=== PATIENT | female | born 1985 | race Hispanic/Latino ===

== ENCOUNTER 2021-06-25 17:04 | Emergency (ER) | payer OTHER ==
--- OUTSIDE RECORDS SUMMARY | 2021-06-25 17:07 | XMS REPORT | Continuity of Care Document ---
:1985 Author Organization [facility] t Address [address] [place] [address] Care Team Providers Name Role Phone Unavailable Unavailable Unavailable Problems This patient has no known problems. Allergies, Adverse Reactions, Alerts This patient has no known allergies or adverse reactions. Medications Ordered Filled Start Stop Current Ordering Indication Dosage Frequency Signature Comments Components Source Medication Medication Date Date Medication? Clinician (SIG) Name Name Augmentin Augmentin Jacqueline [address] [facility]05[facility]11 [facility] Procedures This patient has no known procedures. Encounters Start End Encounter Admission Attending Care Care Encounter Source Date/Time Date/Time Type Type Clinicians Facility Department ID 2020-08-28 2020-08-[address] [id number] 2020-04-30 2020-04-30 [facility] [id number] [facility] 15:09:00 15:09:00 [facility] l Medicine Outpati ent Clinics 2020-04-30 2020-04-30 [facility] [id number] [facility] 15:09:00 15:09:00 [facility] l Medicine Outpati ent Clinics 2020-04-22 2020-04-22 [facility] [id number] [facility] 11:37:00 11:37:00 t [facility] Medicine Outpati ent Clinics 2020-04-21 2020-04-21 [facility] [id number] [facility] 14:20:00 14:20:00 t [facility] Medicine Outpati ent Clinics 2019-11-28 2019-11-28 [facility] [id number] [facility] 15:45:00 15:45:00 t [facility] Medicine Outpati ent Clinics 2019-11-09 2019-11-09 [facility] [id number] [facility] 10:29:00 10:29:00 t [facility] Medicine Outpati ent Clinics 2019-11-07 2019-11-07 [facility] [id number] [facility] 15:45:00 15:45:00 t [facility] Medicine Outpati ent Clinics 2019-10-03 2019-10-03 [facility] [id number] [facility] 11:55:00 11:55:00 t [facility] Medicine Outpati ent Clinics 2019-09-19 2019-09-19 [facility] [id number] [facility] 01:10:00 01:10:00 [facility] Medicine Outpati ent Clinics 2019-09-17 2019-09-17 [facility] [id number] 16:30:00 16:30:00 [facility] Medicine Outpati ent Clinics 2019-09-17 2019-09-17 [facility] [id number] 14:20:00 14:20:00 [facility] Medicine Outpati ent Clinics Results This patient has no known results.
--- NOTE | 2021-06-25 18:06 | EDPHYS ---
Physician Documentation [facility] Name: Olamide Duarte Age: 36 yrs Sex: Female : 1985 Arrival Date: 06/25/2021 Time: 17:06 Bed DIS3 Private MD: ED Physician Kingston Moreno HPI: 06/25 17:31 This 36 yrs old Female presents to ER via Ambulatory with complaints of Back savannah Injury. 17:31 The patient presents with pain that is acute, and decreased range of motion, and an savannah injury. The symptoms are located in the lumbar area. Onset: The symptoms/episode began/occurred just prior to arrival, today. The pain does not radiate. Associated signs and symptoms: The patient has no apparent associated signs or symptoms. The problem was sustained when bending over. Modifying factors: The patient symptoms are alleviated by remaining still, the patient symptoms are aggravated by movement. Severity of symptoms: At their worst the symptoms were moderate, in the emergency department the symptoms are unchanged. The patient has not experienced similar symptoms in the past. 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 - Social history:: Smoking status: Patient denies any tobacco usage or history of. - Family history:: not pertinent. ROS: 17:31 Constitutional: Negative for fever, chills, and weight loss, Eyes: Negative for injury, savannah pain, redness, and discharge, ENT: Negative for injury, pain, and discharge, Neck: Negative for injury, pain, and swelling, Cardiovascular: Negative for chest pain, palpitations, and edema, Respiratory: Negative for shortness of breath, cough, wheezing, and pleuritic chest pain, Abdomen/GI: Negative for abdominal pain, nausea, vomiting, diarrhea, and constipation, : Negative for injury, bleeding, discharge, and swelling, MS/Extremity: Negative for injury and deformity, Skin: Negative for injury, rash, and discoloration, Neuro: Negative for headache, weakness, numbness, tingling, and seizure, Psych: Negative for depression, anxiety, suicide ideation, homicidal ideation, and hallucinations, Allergy/Immunology: Negative for hives, rash, and allergies, Endocrine: Negative for neck swelling, polydipsia, polyuria, polyphagia, and marked weight changes, Hematologic/Lymphatic: Negative for swollen nodes, abnormal bleeding, and unusual bruising. 17:31 Back: Positive for pain with movement, of the lumbar area. Exam: 17:31 Constitutional: This is a well developed, well nourished patient who is awake, alert, savannah and in no acute distress. Head/Face: Normocephalic, atraumatic. Eyes: Pupils equal round and reactive to light, extra-ocular motions intact. Lids and lashes normal. Conjunctiva and sclera are non-icteric and not injected. Cornea within normal limits. Periorbital areas with no swelling, redness, or edema. ENT: Nares patent. No nasal discharge, no septal abnormalities noted. Tympanic membranes are normal and external auditory canals are clear. Oropharynx with no redness, swelling, or masses, exudates, or evidence of obstruction, uvula midline. Mucous membranes moist. Neck: Trachea midline, no thyromegaly or masses palpated, and no cervical lymphadenopathy. Supple, full range of motion without nuchal rigidity, or vertebral point tenderness. No Meningismus. Chest/axilla: Normal chest wall appearance and motion. Nontender with no deformity. No lesions are appreciated. Cardiovascular: Regular rate and rhythm with a normal S1 and S2. No gallops, murmurs, or rubs. Normal PMI, no JVD. No pulse deficits. Respiratory: Lungs have equal breath sounds bilaterally, clear to auscultation and percussion. No rales, rhonchi or wheezes noted. No increased work of breathing, no retractions or nasal flaring. Abdomen/GI: Soft, non-tender, with normal bowel sounds. No distension or tympany. No guarding or rebound. No evidence of tenderness throughout. Skin: Warm, dry with normal turgor. Normal color with no rashes, no lesions, and no evidence of cellulitis. MS/ Extremity: Pulses equal, no cyanosis. Neurovascular intact. Full, normal range of motion. Neuro: Awake and alert, GCS 15, oriented to person, place, time, and situation. Cranial nerves II-XII grossly intact. Motor strength 5/5 in all extremities. Sensory grossly intact. Cerebellar exam normal. Normal gait. Psych: Awake, alert, with orientation to person, place and time. Behavior, mood, and affect are within normal limits. 17:31 Back: pain, that is mild, ROM is painful, with flexion, with extension, normal spinal alignment noted, CVA tenderness, is absent, muscle spasm, is not present. Vital Signs: 17:18 BP 126 / 76; Pulse 76; Resp 18; Temp 98.7(O); Pulse Ox 100% on R/A; Weight 65.77 kg; ld1 Height 5 ft. 3 in. (160.02 cm); Pain 0/10; 17:18 Body Mass Index 25.69 (65.77 kg, 160.02 cm) ld1 MDM: 17:12 Patient medically screened. savannah 17:33 Differential diagnosis: Osteoarthritis Osteoporosis ruptured disc, vertebral fracture. savannah Data reviewed: vital signs, nurses notes, radiologic studies, plain films. Data interpreted: line service person: rate is 76 beats/min, rhythm is regular, Pulse oximetry: on room air is 100 %. Test interpretation: by ED physician or midlevel provider: plain radiologic studies. Counseling: I had a detailed discussion with the patient and/or guardian regarding: the historical points, exam findings, and any diagnostic results supporting the discharge/admit diagnosis, lab results. 06/25 17:31 Order name: XRAY Thoracic Spine (Ap/lat) savannah 06/25 17:31 Order name: Lumbar Spine (3 Views) XRAY savannah Administered Medications: No medications were administered Disposition Summary: 06/25/21 18:05 Discharge Ordered Location: Home savannah Problem: new savannah Symptoms: have improved savannah Condition: Stable savannah Diagnosis - Low back pain savannah - Strain of muscle and tendon of back wall of thorax savannah Followup: savannah - With: Private Physician - When: 2 - 3 days - Reason: Recheck today's complaints, Continuance of care, Re-evaluation by your physician Discharge Instructions: - Discharge Summary Sheet savannah - Musculoskeletal Pain savannah - Thoracic Strain savannah - Thoracic Strain, Cygu-lo-Noyy savannah - Lumbar Sprain savannah - Lumbar Strain savannah Forms: - Medication Reconciliation Form savannah - Thank You Letter savannah - Antibiotic Education savannah - Prescription Opioid Use savannah Prescriptions: - Ibuprofen 600 mg Oral Tablet - take 1 tablet by ORAL route every 6 hours As needed take with food; 21 tablet; savannah Refills: 0, Product Selection Permitted - Cyclobenzaprine 5 mg Oral Tablet - take 1 tablet by ORAL route 3 times per day As needed; 15 tablet; Refills: 0, savannah Product Selection Permitted Signatures: Dispatcher [employer] Kingston Jerry MD MD cha Dibbern, Lauren RN RN ld1
--- NOTE | 2021-06-25 18:06 | ER ---
Nurse's Notes [facility] Name: Olamide Duarte Age: 36 yrs Sex: Female : 1985 Arrival Date: 06/25/2021 Time: 17:06 Bed DIS3 Private MD: Diagnosis: Low back pain;Strain of muscle and tendon of back wall of thorax Presentation: 06/25 17:18 Chief complaint: Patient states: Back injury. Pt reports pushing a cart at work today ld1 when she felt a pull in her lower back. Coronavirus screen: At this time, the client does not indicate any symptoms associated with coronavirus-19. Ebola Screen: No symptoms or risks identified at this time. Initial Sepsis Screen: Does the patient meet any 2 criteria? No. Patient's initial sepsis screen is negative. Does the patient have a suspected source of infection? No. Patient's initial sepsis screen is negative. Risk Assessment: Do you want to hurt yourself or someone else? Patient reports no desire to harm self or others. Onset of symptoms was June 25, 2021. 17:18 Method Of Arrival: Ambulatory ld1 17:18 Acuity: CHARISSE 4 ld1 Triage Assessment: 17:21 General: Appears in no apparent distress. comfortable, Behavior is calm, cooperative, ld1 appropriate for age. Pain: Denies pain. EENT: No signs and/or symptoms were reported regarding the EENT system. Neuro: Level of Consciousness is awake, alert, obeys commands, Oriented to person, place, time, situation, Appropriate for age. Cardiovascular: Capillary refill < 3 seconds Patient's skin is warm and dry. Respiratory: Airway is patent Respiratory effort is even, unlabored, Respiratory pattern is regular, symmetrical. GI: Abdomen is flat, non-distended. : No signs and/or symptoms were reported regarding the genitourinary system. Derm: No signs and/or symptoms reported regarding the dermatologic system. Musculoskeletal: Reports pain in lumbar area since today. 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 - Social history:: Smoking status: Patient denies any tobacco usage or history of. - Family history:: not pertinent. Screenin:23 Abuse screen: Denies threats or abuse. Denies injuries from another. Nutritional ld1 screening: No deficits noted. Tuberculosis screening: No symptoms or risk factors identified. Fall Risk None identified. Assessment: 17:23 Reassessment: See triage assessment. ld1 Vital Signs: 17:18 BP 126 / 76; Pulse 76; Resp 18; Temp 98.7(O); Pulse Ox 100% on R/A; Weight 65.77 kg; ld1 Height 5 ft. 3 in. (160.02 cm); Pain 0/10; 17:18 Body Mass Index 25.69 (65.77 kg, 160.02 cm) ld1 ED Course: 17:06 Patient arrived in ED. as 17:12 Kingston Moreno MD is Attending Physician. savannah 17:18 Nikia Gamez, BETTE is Primary Nurse. ld1 17:21 Triage completed. ld1 17:21 Arm band placed on right wrist. EKG completed in triage. Results shown to MD. ld1 17:23 Patient has correct armband on for positive identification. Call light in reach. Pulse ld1 ox on. NIBP on. 17:23 No provider procedures requiring assistance completed. ld1 17:57 XRAY Thoracic Spine (Ap/lat) In Process Unspecified. EDMS 17:57 Lumbar Spine (3 Views) XRAY In Process Unspecified. EDMS 18:12 Patient did not have IV access during this emergency room visit. intact, bleeding ld1 controlled, No redness/swelling at site. Administered Medications: No medications were administered Outcome: 18:05 Discharge ordered by . savannah 18:11 Discharged to home ambulatory. ld1 18:11 Condition: stable 18:11 Discharge instructions given to patient, Instructed on discharge instructions, follow up and referral plans. medication usage, Demonstrated understanding of instructions, follow-up care, medications, Prescriptions given X 2. 18:12 Patient left the ED. ld1 Signatures: Dispatcher [employer] EDCA Kingston Moreno MD MD cha Martinez, Amelia as Dibbern, Lauren, RN RN ld1 Corrections: (The following items were deleted from the chart) 17:21 17:15 Chief complaint: ld1 ld1
[2021-06-25 18:18] VITALS: BP 126/76; TEMP 98.7; O2SAT 100
--- NOTE | 2021-06-25 18:33 | RAD REPORT ---
EXAM DESCRIPTION: RAD - Thoracic Spine Ap/Lat - 06/25/2021 5:58 pm CLINICAL HISTORY: PAIN COMPARISON: No comparisons FINDINGS: No acute fracture of the thoracic spine is identified. There is endplate spurring in the l ower thoracic spine. No significant malalignment. IMPRESSION: No fracture or malalignment of the thoracic spine.
--- NOTE | 2021-06-25 18:34 | RAD REPORT ---
EXAM DESCRIPTION: RAD - Lumbar Spine 3 Views - 06/25/2021 5:58 pm CLINICAL HISTORY: PAIN COMPARISON: No comparisons FINDINGS: No acute fracture or malalignment of the lumbar spine. Mild degenerative disc disease at t he T11-12 level. IMPRESSION: Lumbar spine radiograph is within normal limits.
[2021-06-25] MEDS ORDERED: KETOROLAC 30 MG/ML INJ ONE (18:43)
[2021-06-25] MEDS ORDERED: NA CHLORIDE 0.9% 500 ML ONE (18:44)
== END 2021-06-25 18:12 | disposition home or self-care (01) ==
LOC: ER 17:04
DX: S29.012A Strain of muscle and tendon of back wall of thorax, initial encounter (principal)
CPT/HCPCS: 72070; 72100; 99283; J7040

== ENCOUNTER 2024-04-13 06:11 | Emergency (ER) | payer BC, OTHER ==
[2024-04-13] MEDS ORDERED: KETOROLAC 30 MG/ML INJ ONE (06:37)
[2024-04-13] MEDS ORDERED: METOCLOPRAMIDE 10 MG/2mL INJ ONE (06:38)
[2024-04-13] MEDS ORDERED: NA CHLORIDE 0.9% 2,000 ML ONE (06:38)
[2024-04-13 07:01] LABS: Absolute Basophils 0.1 K/uL (0-0.5); Absolute Eosinophils 0.1 K/uL (0-0.5); Absolute Lymphocytes (CBC) 0.7 K/uL (0.7-4.9); Absolute Monocytes 0.8 K/uL (0.1-1.3); Absolute Neutrophil 19.9 K/uL (1.8-8.0); Basophils % 0.3 % (0-1.3); Eosinophils % 0.3 % (0-4.4); Hematocrit 40.8 % (36.0-45.0); Hemoglobin 13.6 g/dL (12.0-15.0); Lymphocytes % 3.2 % (15.3-44.8); MCHC 33.4 g/dL (32.0-36.0); MCV 86.7 fL (80-100); MPV 7.4 fL (7.6-11.3); Monocytes % 3.5 % (3.3-12.3); Neutrophils % 92.7 % (41.7-73.7); Platelets 346 thou/uL (152-406); RBC Red Blood Cell Count 4.71 M/uL (3.86-4.86); Red Cell Distribution Width 14.1 % (12.1-15.2)
[2024-04-13 07:20] LABS: Albumin 3.5 g/dL (3.4-5.0); Albumin/Globulin Ratio 0.9 (1.1-1.8); Anion Gap 8.8 mEq/L (5.0-15.0); Bilirubin Total 0.5 mg/dL (0.2-1.0); Globulin 3.9 g/dL (2.3-3.5); Potassium 3.8 mEq/L (3.5-5.1); Protein, Total 7.4 g/dL (6.4-8.2)
--- NOTE | 2024-04-13 07:50 | RAD REPORT ---
EXAM DESCRIPTION: CT - Abdomen Pelvis W Contrast - 04/13/2024 7:39 am CLINICAL HISTORY: Abdominal pain COMPARISON: none. TECHNIQUE: Computed axial tomography of the abdomen pelvis was obtained. 100 cc Isovue-300 was admin istered intravenously. Oral contrast was not requested which limits evaluation of bowel and appendix All CT scans are performed using dose optimization technique as appropriate and may include automated exposure control or mA/KV adjustment according to patient size. FINDINGS: Small fatty lesion dome of the liver is benign. The Spleen, pancreas, adrenals and left kidney unremarkable. Small right renal cyst Cholecystectomy Normal appendix. No evidence of diverticulitis. Small umbilical hernia. Fluid within nondilated large and small bowel No adnexal mass IMPRESSION: Fluid within nondilated large and small bowel may indicate an enteritis
[2024-04-13 07:57] LABS: Specific Gravity 1.019 (1.005-1.030); Sqamous Epithelial <5 /HPF (None Seen); Urine Bacteria None Seen /HPF (<20); Urine Bilirubin NEGATIVE (Negative); Urine Blood 1+ (Negative); Urine Clarity Clear (Clear); Urine Color Light-Yellow (Yellow); Urine Culture Reflex Order NOT NEEDED; Urine Glucose NEGATIVE (Negative); Urine Ketones NEGATIVE (Negative); Urine Microscopic Reflex YN ORDER UMIC; Urine Mucus Slight /HPF (None Seen); Urine Nitrite NEGATIVE (Negative); Urine Protein NEGATIVE (Negative); Urine Urobilinogen Normal (Normal); Urine WBC <5 /HPF (<5); Urine pH 6.5 (5.0-7.0)
[2024-04-13 07:58] LABS: Specific Gravity 1.019 (1.005-1.030)
[2024-04-13 08:01] LABS: Blood Morphology Comment NOT SEEN (NOT SEEN); Platelet Estimate ADEQ; White Blood Cell Scan OK (OK)
--- NOTE | 2024-04-13 08:04 | EDPHYS ---
Physician Documentation [facility] Name: Olamide Duarte Age: 38 yrs Sex: Female : 1985 Arrival Date: 04/13/2024 Time: 06:11 Bed 6 Private MD: ED Physician Dillon Gifford HPI: 04/13 06:28 This 38 yrs old Female presents to ER via Unassigned with complaints of sp4 Abdominal Cramping, Nausea/Vomiting, Diarrhea. 06:35 Patient presents with acute vomiting and abdominal cramps after she ate sushi at the sp4 local sushi diner. . 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 - Infectious Disease History:: Denies. - Social history:: Smoking status: Patient denies any tobacco usage or history of. Patient/guardian denies using alcohol, street drugs. - Family history:: not pertinent. ROS: 06:35 Constitutional: Negative for fever, chills, and weight loss, Positive nausea , sp4 vomiting, diarrhea 06:35 All other systems are negative, Exam: 06:35 Constitutional: This is a well developed, well nourished patient who is awake, alert, sp4 and in no acute distress. Head/Face: Normocephalic, atraumatic. Eyes: Pupils equal round and reactive to light, extra-ocular motions intact. Lids and lashes normal. Conjunctiva and sclera are not injected. Cornea within normal limits. Periorbital areas with no swelling, redness, or edema. ENT: Nares patent. No nasal discharge, no septal abnormalities noted. Tympanic membranes are normal and external auditory canals are clear. Oropharynx with no redness, swelling, or masses, exudates, or evidence of obstruction, uvula midline. Mucous membranes moist. Neck: Trachea midline, no thyromegaly or masses palpated, and no cervical lymphadenopathy. Supple, full range of motion without nuchal rigidity, or vertebral point tenderness. Chest/axilla: Normal chest wall appearance and motion. Nontender with no deformity. No lesions are appreciated. Cardiovascular: Regular rate and rhythm with a normal S1 and S2. No gallops, murmurs, or rubs. Normal PMI, no JVD. No pulse deficits. Respiratory: Lungs have equal breath sounds bilaterally, clear to auscultation and percussion. No rales, rhonchi or wheezes noted. No increased work of breathing, no retractions or nasal flaring. Abdomen/GI: Soft, with normal bowel sounds. No distension or tympany. No guarding or rebound. No evidence of tenderness throughout. Back: No spinal tenderness. No costovertebral tenderness. Skin: Warm, dry with normal turgor. Normal color with no rashes, no lesions, and no evidence of cellulitis. MS/ Extremity: Pulses equal, no cyanosis. Neurovascular intact. Full, normal range of motion. Neuro: Awake and alert, GCS 15, oriented to person, place, time, and situation. Cranial nerves II-XII grossly intact. Motor strength 5/5 in all extremities. Sensory grossly intact. Psych: Awake, alert, with orientation to person, place and time. Behavior, mood, and affect are within normal limits Vital Signs: 06:16 BP 147 / 86; Pulse 115; Resp 18; Temp 97.8; Pulse Ox 98% ; Pain 4/10; bm8 07:08 BP 127 / 80; Pulse 105; Resp 16 S; Pulse Ox 100% on R/A; aa5 08:15 BP 142 / 84; Pulse 94; Resp 16 S; Pulse Ox 100% on R/A; aa5 06:16 Pain Scale: Adult bm8 Xochitl Coma Score: 06:35 Eye Response: spontaneous(4). Motor Response: obeys commands(6). Verbal Response: sp4 oriented(5). Total: 15. 06:49 Eye Response: spontaneous(4). Motor Response: obeys commands(6). Verbal Response: bm8 oriented(5). Total: 15. MDM: 06:55 Patient medically screened. sp4 07:00 Differential diagnosis: Colitis, Enteritis, Food poisoning. Data reviewed: vital signs, sp4 nurses notes, lab test result(s), CBC, electrolytes. Transition of care: After a detail discussion of the patient's case, care is transferred to Dillon Gifford MD. 07:08 ED course: Patient signed out to me by previous physician, in brief patient arrives ec2 today for evaluation of nausea and vomiting after eating sushi last night. Plan is to follow-up lab work and reassess after medication administration. Differential diagnose include processes such as gastroenteritis, low suspicion for processes such as appendicitis or cholecystitis.. 07:24 ED course: CBC shows slight leukocytosis at 21.5. Metabolic profile shows appropriate ec2 electrolytes and renal function. Lipase within normal ranges. Urine studies pending . 07:53 ED course: Given leukocytosis and tachycardia, obtain a CT scan of the abdomen pelvis ec2 to evaluate further processes such as appendicitis. CT scan shows no evidence of appendicitis. On reassessment patient reports improvement in symptoms. Will discharge home, suspect gastroenteritis secondary to food poisoning.. 08:01 ED course: Urine studies negative for infection, negative for .. ec2 04/13 06:32 Order name: CBC with Diff; Complete Time: 08:04 sp4 04/13 06:32 Order name: CMP; Complete Time: 07:24 sp4 04/13 06:32 Order name: Lipase; Complete Time: 07:24 sp4 04/13 06:32 Order name: Test, Urine; Complete Time: 08:01 sp4 04/13 06:32 Order name: Urinalysis w/ reflexes; Complete Time: 08:01 sp4 04/13 07:10 Order name: CBC Smear Scan; Complete Time: 08:04 EDMS 04/13 07:30 Order name: CT Abd/Pelvis - IV Contrast Only; Complete Time: 07:53 ec2 04/13 06:32 Order name: IV Saline Lock; Complete Time: 06:48 sp4 04/13 06:32 Order name: Labs collected and sent; Complete Time: 06:48 sp4 Administered Medications: 06:48 Drug: metoCLOPramide IVP 10 mg IVP once; over 1 to 2 minutes Route: IVP; Site: left bm8 antecubital; 07:00 Follow up: Response: No adverse reaction aa5 06:48 Drug: NS 0.9% IV 1000 ml IV at 1 bolus Per protocol; 1000 mL bolus Route: IV; Rate: 1 bm8 bolus; Site: left antecubital; 07:50 Follow up: IV Status: Completed infusion; IV Intake: 1000ml aa5 06:48 Drug: Ketorolac IVP 30 mg IVP once Route: IVP; Site: left antecubital; bm8 07:00 Follow up: Response: No adverse reaction aa5 07:50 Drug: NS 0.9% IV 1000 ml IV at 1 bolus Per protocol; 1000 mL bolus Route: IV; Rate: 1 aa5 bolus; Site: left antecubital; 08:45 Follow up: IV Status: Completed infusion; IV Intake: 1000ml aa5 Disposition Summary: 04/13/24 08:03 Discharge Ordered Notes: Location: Home ec2 Condition: Stable ec2 Diagnosis - Noninfective gastroenteritis and colitis, unspecified ec2 Followup: ec2 - With: Private Physician - When: - Reason: Re-evaluation by your physician Discharge Instructions: - Discharge Summary Sheet ec2 - Food Poisoning, [id number] ec2 Forms: - Medication Reconciliation Form ec2 - Antibiotic Education ec2 - Prescription Opioid Use ec2 - Patient Portal Instructions ec2 - Leadership Thank You Letter ec2 Prescriptions: - Reglan 10 mg Oral Tablet - take 1 tablet ORAL route every 6 hours take 30 minutes before meals and at ec2 bedtime; 20 tablet; Refills: 0, Product Selection Permitted Signatures: Dispatcher [employer] Janie Rosenberg, RN RN aa5 Oc Abraham MD MD sp4 Dillon Gifford MD MD ec2 Jean-Claude Acevedo, RN RN bm8 Corrections: (The following items were deleted from the chart) 07:31 07:31 Abdomen Pelvis W Con+CT.RAD.BRZ ordered. JANEEN VERNON
--- NOTE | 2024-04-13 08:04 | ER ---
Nurse's Notes [facility] Name: Olamide Duarte Age: 38 yrs Sex: Female : 1985 Arrival Date: 04/13/2024 Time: 06:11 Bed 6 Private MD: Diagnosis: Noninfective gastroenteritis and colitis, unspecified Presentation: 04/13 06:16 Chief complaint: Patient states: eating sushi last night, started vomiting around 0100 bm8 this morning. Coronavirus screen: Vaccine status: Patient reports being unvaccinated. At this time, the client does not indicate any symptoms associated with coronavirus-19. Ebola Screen: Patient negative for fever greater than or equal to 101.5 degrees Fahrenheit, and additional compatible Ebola Virus Disease symptoms Patient denies exposure to infectious person. Patient denies travel to an Ebola-affected area in the 21 days before illness onset. No symptoms or risks identified at this time. Initial Sepsis Screen: Does the patient meet any 2 criteria? No. Patient's initial sepsis screen is negative. Does the patient have a suspected source of infection? No. Patient's initial sepsis screen is negative. Risk Assessment: Do you want to hurt yourself or someone else? Patient reports no desire to harm self or others. Onset of symptoms was April 13, 2024 at 01:00. Care prior to arrival: Medication(s) given: zofran 8 mg. 06:16 Method Of Arrival: Ambulatory bm8 06:16 Acuity: CHARISSE 3 bm8 Triage Assessment: 06:33 General: Appears in no apparent distress. comfortable, Behavior is calm, cooperative, bm8 appropriate for age. Pain: Complains of pain in abdomen. EENT: No deficits noted. No signs and/or symptoms were reported regarding the EENT system. Neuro: No deficits noted. Level of Consciousness is awake, alert, obeys commands, Oriented to person, place, time, situation, Appropriate for age. Cardiovascular: No deficits noted. Heart tones S1 S2 present Capillary refill < 3 seconds Patient's skin is warm and dry. Respiratory: No deficits noted. Airway is patent Trachea midline Respiratory effort is even, unlabored, Respiratory pattern is regular, symmetrical, Breath sounds are clear bilaterally. GI: No deficits noted. Abdomen is flat, non-distended, Bowel sounds present X 4 quads. : No signs and/or symptoms were reported regarding the genitourinary system. Derm: No signs and/or symptoms reported regarding the dermatologic system. Musculoskeletal: No signs and/or symptoms reported regarding the musculoskeletal system. 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 - Infectious Disease History:: Denies. - Social history:: Smoking status: Patient denies any tobacco usage or history of. Patient/guardian denies using alcohol, street drugs. - Family history:: not pertinent. Screenin:35 [facility] ED Fall Risk Assessment (Adult) History of falling in the last 3 months, bm8 including since admission No falls in past 3 months (0 pts) Confusion or Disorientation No (0 pts) Intoxicated or Sedated No (0 pts) Impaired Gait No (0 pts) Mobility Assist Device Used No (0 pt) Altered Elimination No (0 pt) Score/Fall Risk Level 0 - 2 = Low Risk Oriented to surroundings, Maintained a safe environment, Educated pt \T\ family on fall prevention, incl call for assistance when getting out of bed. Abuse screen: Denies threats or abuse. Nutritional screening: No deficits noted. Tuberculosis screening: No symptoms or risk factors identified. Assessment: 06:35 Reassessment: see triage note. bm8 06:49 GI: Abd is soft and non tender X 4 quads. Reports nausea, vomiting. bm8 07:08 Reassessment: Patient is alert, oriented x 3, equal unlabored respirations, skin aa5 warm/dry/pink. Pt sitting up in bed, reports nausea and vomiting, denies diarrhea, denies abd pain. NS bolus infusing. Call light within reach. . 07:50 Reassessment: Patient is alert, oriented x 3, equal unlabored respirations, skin aa5 warm/dry/pink. Patient states feeling better. 08:05 Reassessment: Awaiting NS bolus to complete before d/c home. . aa5 08:45 Reassessment: Patient is alert, oriented x 3, equal unlabored respirations, skin aa5 warm/dry/pink. Vital Signs: 06:16 BP 147 / 86; Pulse 115; Resp 18; Temp 97.8; Pulse Ox 98% ; Pain 4/10; bm8 07:08 BP 127 / 80; Pulse 105; Resp 16 S; Pulse Ox 100% on R/A; aa5 08:15 BP 142 / 84; Pulse 94; Resp 16 S; Pulse Ox 100% on R/A; aa5 06:16 Pain Scale: Adult bm8 [place] Coma Score: 06:35 Eye Response: spontaneous(4). Motor Response: obeys commands(6). Verbal Response: sp4 oriented(5). Total: 15. 06:49 Eye Response: spontaneous(4). Motor Response: obeys commands(6). Verbal Response: bm8 oriented(5). Total: 15. ED Course: 06:15 Patient arrived in ED. gm2 06:28 Oc Abraham MD is Attending Physician. sp4 06:30 Jean-Claude Acevedo, RN is Primary Nurse. bm8 06:33 Triage completed. bm8 06:33 Arm band placed on right wrist. bm8 06:35 Patient has correct armband on for positive identification. Call light in reach. Side bm8 rails up X 1. Client placed on continuous cardiac and pulse oximetry monitoring. NIBP monitoring applied. Pulse ox on. NIBP on. Door closed. Noise minimized. Visitors limited. Warm blanket given. Verbal reassurance given. Head of bed elevated. 06:35 No provider procedures requiring assistance completed. Initial lab(s) drawn, by deaugie sent to lab. Inserted saline lock: 22 gauge in left antecubital area, using aseptic technique. Blood collected. 06:50 Report given to murray casas. bm8 07:07 Attending Physician role handed off by Oc Abraham MD ec2 07:07 Dillon Gifford MD is Attending Physician. ec2 07:41 CT Abd/Pelvis - IV Contrast Only In Process Unspecified. EDMS 08:45 IV discontinued, intact, bleeding controlled, No redness/swelling at site. Pressure aa5 dressing applied. Administered Medications: 06:48 Drug: metoCLOPramide IVP 10 mg IVP once; over 1 to 2 minutes Route: IVP; Site: left bm8 antecubital; 07:00 Follow up: Response: No adverse reaction aa5 06:48 Drug: NS 0.9% IV 1000 ml IV at 1 bolus Per protocol; 1000 mL bolus Route: IV; Rate: 1 bm8 bolus; Site: left antecubital; 07:50 Follow up: IV Status: Completed infusion; IV Intake: 1000ml aa5 06:48 Drug: Ketorolac IVP 30 mg IVP once Route: IVP; Site: left antecubital; bm8 07:00 Follow up: Response: No adverse reaction aa5 07:50 Drug: NS 0.9% IV 1000 ml IV at 1 bolus Per protocol; 1000 mL bolus Route: IV; Rate: 1 aa5 bolus; Site: left antecubital; 08:45 Follow up: IV Status: Completed infusion; IV Intake: 1000ml aa5 Medication: 06:35 VIS not applicable for this client. bm8 Intake: 07:50 IV: 1000ml; Total: 1000ml. aa5 08:45 IV: 1000ml; Total: 2000ml. aa5 Outcome: 08:03 Discharge ordered by . ec2 08:45 Discharged to home ambulatory, aa5 08:45 Condition: stable 08:45 Discharge instructions given to patient, Instructed on discharge instructions, follow up and referral plans. medication usage, Demonstrated understanding of instructions, follow-up care, medications, Prescriptions given X 1, 08:49 Patient left the ED. eb Signatures: Dispatcher [employer] Janie Rosenberg RN RN aa5 Sonali Soto Sergey, MD MD sp4 Dillon Gifford MD MD ec2 Halima Zuluaga Brad, RN RN bm8 Corrections: (The following items were deleted from the chart) 07:51 06:50 IV Status: Completed infusion; IV Intake: 1000ml aa5 aa5 11:48 08:25 IV Status: Completed infusion; IV Intake: 1000ml aa5 aa5
[2024-04-13 09:06] VITALS: BP 127/80; TEMP 97.8; O2SAT 100
== END 2024-04-13 08:49 | disposition home or self-care (01) ==
LOC: ER 06:11
DX: K52.9 Noninfective gastroenteritis and colitis, unspecified (principal)
CPT/HCPCS: 96361; 85025; 81001; 36415; 81025; 83690; 80053; 74177; 96375; 96374; 99284; Q9967; J2765; J7030